=== PATIENT | male | born 1955 | race Two or more races ===

== ENCOUNTER 2019-01-13 04:45 | Day surgery (SDC) | payer OTHER ==
[~2019-01-13 04:45] MED LIST: LIPITOR40 MG PO; NORVASC2.5 M1 PO
== END 2019-01-13 14:20 | disposition home or self-care (01) ==
LOC: CIR.AMB 04:45
DX: M23.222 Derangement of posterior horn of medial meniscus due to old tear or injury, left knee (principal); M65.862 Other synovitis and tenosynovitis, left lower leg; M22.42 Chondromalacia patellae, left knee